=== PATIENT | female | born 1930 | race Caucasian/White ===

== ENCOUNTER 2019-05-08 11:37 | Observation (INO) ==
[2019-05-08] MEDS ORDERED: ONDANSETRON 4 MG/2 ML VIAL ONE (12:57)
[2019-05-08] MEDS ORDERED: SODIUM CHLORIDE 0.9% 1,000 ML IV STA (13:04)
[2019-05-08] MEDS ORDERED: ONDANSETRON 4 MG/2 ML VIAL IM STA (13:04)
[2019-05-08] MEDS ORDERED: ONDANSETRON 4 MG/2 ML VIAL IV STA ×2 (13:06→15:53)
[2019-05-08 13:15] LABS: Basophils % 0.2 % (0.0-0.8); Hematocrit 41.1 VOL% (35.7-47.0); Hemoglobin 13.3 GM/DL (12.0-16.0); Immature Granulocytes % 0.7 %; Immature Granulocytes Absolute 0.04 #; Lymphocytes # 1.2 10*3/uL (1.4-4.0); Lymphocytes % 20.1 % (21.3-54.2); Mean Corpuscular HGB Conc 32.4 GM/DL (32-36); Mean Corpuscular Volume 91.5 FL (87-102); Mean Platelet Volume 10.1 FL (9.6-12.0); Monocytes % 6.3 % (1.7-12.7); Neutrophils % 72.7 % (38.7-73.9); Platelet Count 186 T/CUMM (130-400); Red Blood Count 4.49 MC/CUMM (3.8-5.5); Red Cell Distribution Width 13.4 % (9.3-17.3); White Blood Count 5.7 T/CUMM (4-12)
[2019-05-08 13:25] LABS: Albumin 3.4 G/DL (3.4-5.0); Bilirubin,Total 0.9 MG/DL (0.2-1.0); Calcium 8.9 MG/DL (8.5-10.1); Osmolality,Calculated 272.2 MOS/KG (273-304); Total Protein 7.1 G/DL (6.4-8.3)
[2019-05-08 13:30] LABS: Troponin I < 0.015 NG/ML (0.00-0.045)
[2019-05-08] MEDS ORDERED: METOCLOPRAMIDE 10 MG/2 ML VIAL ONE (13:50)
[2019-05-08] MEDS ORDERED: PANTOPRAZOLE 40 MG VIAL IV ONE (13:50)
[2019-05-08] MEDS ORDERED: PANTOPRAZOLE 40 MG VIAL IV STA (13:54)
[2019-05-08] MEDS ORDERED: METOCLOPRAMIDE 10 MG/2 ML VIAL IV STA (13:54)
[2019-05-08 15:48] LABS: Apearance,Urine CLEAR (Clear); Bilirubin,Urine Negative (Negative); Blood, Urine Negative (Negative); Glucose,Urine (UA) Negative (Negative); Ketones,Urine Negative (Negative); Mucus,Urine Occasional /LPF (Occasional); Nitrite,Urine Negative (Negative); Protein,Urine Negative; RBC,Urine 2 /HPF (0-4); Urine Color Yellow (Yellow); Urine Specific Gravity 1.013 (1.001-1.035); Urine Urobilinogen < 2.0 EU/DL (0.2-1.0); WBC,Urine 1 /HPF (0-6)
[2019-05-08] MEDS ORDERED: ACETAMINOPHEN 325 MG TABLET PO PRN (16:39)
[2019-05-08] MEDS ORDERED: ONDANSETRON 4 MG/2 ML VIAL IV PRN (16:39)
[2019-05-08] MEDS ORDERED: hydrALAZINE 20 MG/1 ML VIAL IV PRN (16:43)
[2019-05-08] MEDS: SODIUM CHLORIDE 0.9% 1,000 ML IV SCH (19:04)
[2019-05-09] MEDS: SODIUM CHLORIDE 0.9% 1,000 ML IV SCH (04:34)
[2019-05-09 05:52] LABS: Basophils % 0.2 % (0.0-0.8); Hematocrit 36.1 VOL% (35.7-47.0); Hemoglobin 11.5 GM/DL (12.0-16.0); Immature Granulocytes % 0.3 %; Immature Granulocytes Absolute 0.02 #; Lymphocytes # 2.3 10*3/uL (1.4-4.0); Lymphocytes % 38.1 % (21.3-54.2); Mean Corpuscular HGB Conc 31.9 GM/DL (32-36); Mean Corpuscular Volume 91.9 FL (87-102); Mean Platelet Volume 10.2 FL (9.6-12.0); Monocytes % 10.1 % (1.7-12.7); Neutrophils % 51.3 % (38.7-73.9); Platelet Count 179 T/CUMM (130-400); Red Blood Count 3.93 MC/CUMM (3.8-5.5); Red Cell Distribution Width 13.4 % (9.3-17.3)
[2019-05-09 06:01] LABS: Osmolality,Calculated 274.7 MOS/KG (273-304)
[2019-05-09 08:06] VITALS: BP 126/75
[2019-05-09] MEDS ORDERED: PANTOPRAZOLE 40 MG TABLET PO SCH (09:00)
== END 2019-05-09 12:00 | disposition home or self-care (01) ==
LOC: N.EDINP 11:37 → N.ED 11:37 → N.4E 17:20
PROVIDERS: ADMIT Internal Medicine Geriatric Medicine; ATTEND Internal Medicine Geriatric Medicine

== ENCOUNTER 2019-10-03 08:28 | Observation (INO) ==
[2019-10-03 10:10] LABS: Basophils % 0.3 % (0.0-0.8); Hematocrit 41.8 VOL% (35.7-47.0); Hemoglobin 13.6 GM/DL (12.0-16.0); Immature Granulocytes % 0.5 %; Immature Granulocytes Absolute 0.05 #; Lymphocytes # 1.6 10*3/uL (1.4-4.0); Lymphocytes % 14.4 % (21.3-54.2); Mean Corpuscular HGB Conc 32.5 GM/DL (32-36); Mean Corpuscular Volume 90.3 FL (87-102); Mean Platelet Volume 9.8 FL (9.6-12.0); Neutrophils % 76.8 % (38.7-73.9); Platelet Count 210 T/CUMM (130-400); Red Blood Count 4.63 MC/CUMM (3.8-5.5); Red Cell Distribution Width 13.2 % (9.3-17.3); White Blood Count 10.8 T/CUMM (4-12)
[2019-10-03 10:17] LABS: Apearance,Urine CLEAR (Clear); Bilirubin,Urine Negative (Negative); Blood, Urine Negative (Negative); Glucose,Urine (UA) Negative (Negative); Hyaline Casts,Urine 5 /LPF (0-3); Ketones,Urine 5 mg/dL (Negative); Mucus,Urine Occasional /LPF (Occasional); Nitrite,Urine Negative (Negative); Protein,Urine 30 MG/DL; RBC,Urine 4 /HPF (0-4); Squamous Epithelial Cell,Urine Occasional /HPF (0-10); Urine Color Amber (Yellow); Urine Specific Gravity 1.024 (1.001-1.035); Urine Urobilinogen < 2.0 EU/DL (0.2-1.0); WBC,Urine 6 /HPF (0-6)
[2019-10-03 10:31] LABS: Albumin 3.2 G/DL (3.4-5.0); Bilirubin,Total 1.4 MG/DL (0.2-1.0); Calcium 8.7 MG/DL (8.5-10.1); Osmolality,Calculated 276.8 MOS/KG (273-304); Total Protein 6.6 G/DL (6.4-8.3)
[2019-10-03] MEDS ORDERED: LACTATED RINGERS 500 ML IV ONE (10:46)
[2019-10-03] MEDS ORDERED: cefTRIAXone 1,000 MG in SODIUM CHLORIDE 0.9% 100 ML IV STA (10:46)
[2019-10-03] MEDS ORDERED: ALBUTEROL 2.5 MG/3 ML NEB RESP TX PRN (11:34)
[2019-10-03] MEDS ORDERED: DEXTROSE 50% 25 GM/50 ML VIAL IV PRN (11:34)
[2019-10-03] MEDS ORDERED: GLUCAGON 1 MG VIAL IM PRN (11:34)
[2019-10-03] MEDS ORDERED: ONDANSETRON 4 MG/2 ML VIAL IV PRN (11:34)
[2019-10-03] MEDS: metroNIDAZOLE INJ 500 MG in PREMIX 1 EACH IV SCH ×2 (13:26→21:16)
[2019-10-03] MEDS: SODIUM CHLORIDE 0.9% 1,000 ML IV SCH ×2 (13:26→21:16)
[2019-10-03] MEDS: ENOXAPARIN 40 MG/0.4 ML SYRINGE SUBCUT SCH (13:27)
[2019-10-03] MEDS: CIPROFLOXACIN INJ 400 MG in PREMIX 1 EACH IV SCH (15:14)
[2019-10-04] MEDS: CIPROFLOXACIN INJ 400 MG in PREMIX 1 EACH IV SCH ×3 (00:03→23:03)
[2019-10-04] MEDS: metroNIDAZOLE INJ 500 MG in PREMIX 1 EACH IV SCH ×3 (03:36→19:51)
[2019-10-04 05:42] LABS: Basophils % 0.4 % (0.0-0.8); Hematocrit 36.9 VOL% (35.7-47.0); Hemoglobin 11.6 GM/DL (12.0-16.0); Immature Granulocytes % 0.5 %; Immature Granulocytes Absolute 0.04 #; Lymphocytes # 1.9 10*3/uL (1.4-4.0); Lymphocytes % 25.8 % (21.3-54.2); Mean Corpuscular HGB Conc 31.4 GM/DL (32-36); Mean Corpuscular Volume 93.2 FL (87-102); Mean Platelet Volume 9.7 FL (9.6-12.0); Monocytes % 12.1 % (1.7-12.7); Neutrophils % 61.2 % (38.7-73.9); Platelet Count 173 T/CUMM (130-400); Red Blood Count 3.96 MC/CUMM (3.8-5.5); Red Cell Distribution Width 12.9 % (9.3-17.3); White Blood Count 7.3 T/CUMM (4-12)
[2019-10-04 06:14] LABS: Albumin 2.5 G/DL (3.4-5.0); Bilirubin,Total 1.3 MG/DL (0.2-1.0); Calcium 8.1 MG/DL (8.5-10.1); Osmolality,Calculated 278.5 MOS/KG (273-304); Total Protein 5.8 G/DL (6.4-8.3)
[2019-10-04] MEDS: ASPIRIN EC 81 MG TABLET PO SCH (08:42)
[2019-10-04] MEDS: SODIUM CHLORIDE 0.9% 1,000 ML IV SCH ×2 (09:55→19:51)
[2019-10-04] MEDS: ENOXAPARIN 40 MG/0.4 ML SYRINGE SUBCUT SCH (11:43)
[2019-10-04] MEDS: PANTOPRAZOLE 40 MG VIAL IV SCH (17:19)
[2019-10-05] MEDS: metroNIDAZOLE INJ 500 MG in PREMIX 1 EACH IV SCH (03:05)
[2019-10-05 06:47] LABS: Osmolality,Calculated 277.4 MOS/KG (273-304)
[2019-10-05] MEDS ORDERED: ROSUVASTATIN 10 MG TABLET PO SCH (09:00)
[2019-10-05] MEDS: PANTOPRAZOLE 40 MG VIAL IV SCH (09:53)
[2019-10-05] MEDS: ASPIRIN EC 81 MG TABLET PO SCH (09:53)
[2019-10-05] MEDS: SODIUM CHLORIDE 0.9% 1,000 ML IV SCH (09:59)
[2019-10-05 12:11] VITALS: BP 154/56
== END 2019-10-05 14:02 | disposition home or self-care (01) ==
LOC: N.ED 08:28 → N.EDINP 08:28 → N.3E 12:55
PROVIDERS: ADMIT Internal Medicine; ATTEND Internal Medicine